=== PATIENT | female | born 1960 | race Caucasian/White ===

== ENCOUNTER 2017-11-06 17:22 | Observation (INO) | payer MEDICAID ==
[~2017-11-06] VITALS: Ht 170.2 cm; Wt 55.2 kg
[~2017-11-06 17:22] MED LIST: ALPR1TAB2 PO; CLON-527 PO; HYDR-565 PO; IBUP-1984 PO; LEVO75TA PO
[2017-11-06 18:02] LABS: BASOPHILS % (AUTO) 0.2 % (0-1); EOSINOPHILS % (AUTO) 0.1 % (0-6); HEMATOCRIT 38.7 % (35.0-45.0); HEMOGLOBIN 13.7 g/dl (12.0-16.0); LYMPHOCYTES # (AUTO) 1.4 X10'3 (1.1-4.8); LYMPHOCYTES % (AUTO) 25.1 % (21-51); MEAN CORPUSCULAR HEMOGLOBIN 33.2 PG (27.0-31.0); MEAN CORPUSCULAR HGB CONC 35.4 % (33.0-36.5); MEAN CORPUSCULAR VOLUME 93.6 FL (78-98); MEAN PLATELET VOLUME 8.1 FL (7.4-10.4); MONOCYTES # (AUTO) 0.2 X10'3 (0-0.9); MONOCYTES % (AUTO) 3.3 % (2-12); NEUTROPHILS # (AUTO) 3.9 X10'3 (1.8-7.7); NEUTROPHILS % (AUTO) 71.3 % (42-75); PLATELET COUNT 206 X10'3 (140-440); RED BLOOD COUNT 4.14 X10'6 (4.20-5.60); RED CELL DISTRIBUTION WIDTH 12.4 % (11.5-14.5); WHITE BLOOD COUNT 5.4 X10'3 (4.5-11.0)
[2017-11-06 18:19] LABS: PARTIAL THROMBOPLASTIN TIME 26 SECONDS (22-32); PROTHROMBIN TIME 10.1 SECONDS (9.0-12.0)
[2017-11-06 18:22] LABS: ALANINE AMINOTRANSFERASE 29 U/L (12-78); ALBUMIN 4.2 G/DL (3.4-5.0); ALBUMIN/GLOBULIN RATIO 1.4 (1.1-1.5); ALKALINE PHOSPHATASE 74 IU/L (46-116); ANION GAP 8 (8-16); ASPARTATE AMINO TRANSFERASE 18 U/L (10-37); BILIRUBIN,TOTAL 0.4 MG/DL (0.1-1.0); BLOOD UREA NITROGEN 6 MG/DL (7-18); BUN/CREATININE RATIO 8.6 (6.6-38.0); CALCIUM 9.1 MG/DL (8.5-10.1); CHLORIDE 101 MMOL/L (99-107); GLUCOSE 106 MG/DL (70-104); POTASSIUM 3.7 MMOL/L (3.5-5.1); SODIUM 136 MMOL/L (135-145); TOTAL CARBON DIOXIDE 26.7 MMOL/L (24-32); TOTAL PROTEIN 7.2 G/DL (6.4-8.2); eGFR 86 ML/MIN
[2017-11-06 18:31] LABS: ETHANOL < 0.010 GM/DL (0.0-0.010)
[2017-11-06 19:34] LABS: URINE AMPHETAMINE SCREEN NEGATIVE (Neg); URINE BARBITUATE SCREEN NEGATIVE (Neg); URINE BENZODIAZEPINES SCREEN NEGATIVE (Neg); URINE CANNABINOID SCREEN POSITIVE (Neg); URINE COCAINE SCREEN NEGATIVE (Neg); URINE METHADONE SCREEN NEGATIVE (Neg); URINE OPIATE SCREEN NEGATIVE (Neg); URINE PHENCYCLIDINE SCREEN NEGATIVE (Neg)
[2017-11-06] MEDS ORDERED: QUET100T33 PO (20:12)
[2017-11-06] MEDS ORDERED: DESV50TA20 PO (20:12)
[2017-11-06] MEDS ORDERED: mag hydrox/Alum hydrox/simeth 30ml oral suspension PO PRN (23:30)
[2017-11-06] MEDS ORDERED: ondansetron/PF 4mg/2ml inj IV PRN (23:30)
[2017-11-06] MEDS ORDERED: diphenhydrAMINE 25mg capsule PO PRN (23:30)
[2017-11-06] MEDS ORDERED: acetaminophen 325mg tablet PO PRN (23:30)
[2017-11-06] MEDS ORDERED: magnesium hydroxide 30ml (MOM) UD suspension PO PRN (23:30)
[2017-11-07 01:21] VITALS: BP 131/81
[2017-11-07 06:00] VITALS: BP 97/61
[2017-11-07] MEDS ORDERED: levoTHYROXINE 75mcg tablet PO SCH (07:00)
[2017-11-07] MEDS ORDERED: venlafaxine 25mg tablet PO SCH (08:00)
[2017-11-07 08:37] LABS: CHOL/HDL RATIO 2.3 (0.00-4.99); CHOLESTEROL 129 MG/DL (0-200); HDL CHOLESTEROL 56 MG/DL (35-60); LDL CHOLESTEROL 65 MG/DL (50-100); TRIGLYCERIDES 97 MG/DL (20-135)
[2017-11-07 11:00] VITALS: BP 161/90
[2017-11-07] MEDS ORDERED: quetiapine 100mg tablet PO SCH (21:00)
== END 2017-11-07 15:30 | disposition home or self-care (01) ==
LOC: ER 17:23 → ED HOLD 23:27 → ORTHO 4S 11-07 00:53
PROVIDERS: ADMIT Internal Medicine; ATTEND Hospitalist
DX: R20.2 Paresthesia of skin (principal); F12.90 Cannabis use, unspecified, uncomplicated; F41.0 Panic disorder [episodic paroxysmal anxiety]; I63.9 Cerebral infarction, unspecified; F32.9 Major depressive disorder, single episode, unspecified; F41.9 Anxiety disorder, unspecified
CPT/HCPCS: 36415; 70450; 70551; 71045; 80053; 80061; 80305; 80320; 82948; 84443; 85025; 85610; 85730; 87070; 93306; 93880; 99285; G0378